=== PATIENT | male | born 1955 | race Caucasian/White ===

== ENCOUNTER 2017-11-06 04:51 | Emergency (ER) | payer OTHER ==
[~2017-11-06] VITALS: Ht 175.3 cm; Wt 95.3 kg
[2017-11-06] MEDS ORDERED: ALBUTEROL SULF 2.5 MG/0.5ML(0.5%) NEB SOLN HHN ONE (05:15)
[2017-11-06] MEDS ORDERED: methylPREDNISolone SOD SUCC 125 MG/2 ML VL IV ONE (05:15)
[2017-11-06] MEDS ORDERED: IPRATROPIUM BROM 0.5 MG/2.5ML INH SOL HHN ONE (05:15)
[2017-11-06 05:49] LABS: Basophils # (auto) 0.1 uL; Basophils % (auto) 0.7 % (0.0-2.0); Eosinophils # (auto) 0.2 uL; Eosinophils % (auto) 1.9 % (0.0-7.0); Hemoglobin 16.1 g/dL (13.5-17.5); Lymphocytes # (auto) 1.8 uL; Lymphocytes % (auto) 20.5 % (10.0-50.0); Mean Corpuscular Hemoglobin 30.1 pg (28.0-32.0); Mean Corpuscular Hgb Conc. 33.6 g/dL (32.0-36.0); Mean Corpuscular Volume 89.5 fL (80.0-100.0); Monocytes # (auto) 0.6 uL; Monocytes % (auto) 6.8 % (0.0-12.0); Neutrophils % (auto) 70.1 % (37.0-80.0); Nucleated Red Blood Cells % 0.1 %; Platelet Count (auto) 106 10^3/uL (140-450); Red Blood Cells 5.36 10^6/uL (4.5-5.90); Red Cell Distribution Width 14.9 % (11.8-14.3); White Blood Cell 8.6 10^3/uL (4.4-10.8)
[2017-11-06 06:06] LABS: Albumin 3.5 g/dL (3.4-5.0); Anion Gap 9 (5-15); BUN/Creatinine Ratio 17.6; Blood Urea Nitrogen 12 mg/dL (7-18); Calcium 7.9 mg/dL (8.5-10.1); Carbon Dioxide 26 mmol/L (21-32); Chloride 106 mmol/L (98-107); GFR African American 152 mL/min; GFR Non-African American 126 mL/min; Glucose 114 mg/dL (74-106); Magnesium 2.1 mg/dL (1.6-2.6); Potassium 3.5 mmol/L (3.5-5.1); Sodium 141 mmol/L (136-145)
[2017-11-06 06:11] LABS: Alanine Aminotransferase 27 U/L (16-61); Alkaline Phosphatase 80 U/L (45-117); Aspartate Aminotransferase 15 U/L (15-37); Bilirubin, Total 0.4 mg/dL (0.2-1.0); Total Protein 7.1 g/dL (6.4-8.2)
[2017-11-06 08:03] VITALS: BP 125/67
== END 2017-11-06 08:29 | disposition left against medical advice (07) ==
LOC: EDBD 04:51 → ER 04:57
DX: J44.1 Chronic obstructive pulmonary disease with (acute) exacerbation (principal); Z53.29 Procedure and treatment not carried out because of patient's decision for other reasons
CPT/HCPCS: 36415; 36600; 71045; 80053; 82805; 83735; 83880; 84484; 85025; 87040; 93005; 94640; 96374; 99285; J2930